=== PATIENT | female | born 1930 | race Caucasian/White ===

== ENCOUNTER → 2016-06-08 | Outpatient (CLI) | payer OTHER ==
[2016-06-08 13:28] LABS: Basophils # (auto) 0 uL; Basophils % (auto) 0.4 % (0.0-2.0); DEFINITIVE VIEW TRANSMISSION; Eosinophils # (auto) 0.1 uL; Eosinophils % (auto) 1.5 % (0.0-7.0); Hematocrit 29.8 % (36.0-46.0); Hemoglobin 9.2 g/dL (12.2-16.2); Lymphocytes # (auto) 1.9 uL; Lymphocytes % (auto) 28.3 % (10.0-50.0); Mean Corpuscular Hemoglobin 26.9 pg (28.0-32.0); Mean Corpuscular Hgb Conc. 30.9 g/dL (32.0-36.0); Mean Platelet Volume 8.5 fL (7.4-10.4); Monocytes # (auto) 0.6 uL; Monocytes % (auto) 9.2 % (0.0-12.0); Neutrophils % (auto) 60.6 % (37.0-80.0); Platelet Count (auto) 271 10^3/uL (140-450); Red Cell Distribution Width 14.7 % (11.6-16.0); White Blood Cell 6.6 10^3/uL (4.4-10.8)
[2016-06-08 13:54] LABS: Albumin 3.5 g/dL (3.4-5.0); BUN/Creatinine Ratio 17.4; Phosphorus 2.7 mg/dL (2.5-4.90); Potassium 3.6 mmol/L (3.5-5.1)
== END | disposition home or self-care (01) ==
LOC: LAB 12:42
PROVIDERS: ATTEND Internal Medicine
DX: N18.3 Chronic kidney disease, stage 3 (moderate) (principal)
CPT/HCPCS: 36415; 80069; 85025

== ENCOUNTER → 2016-07-29 | Outpatient (CLI) | payer OTHER ==
[~2016-07-29] MED LIST: ALEN70TA55 PO; ASPI-378 PO; MET25T PO; PANT40T PO
[2016-07-29 10:33] LABS: Basophils # (auto) 0 uL; Basophils % (auto) 0.5 % (0.0-2.0); Eosinophils # (auto) 0.1 uL; Hematocrit 35.9 % (36.0-46.0); Hemoglobin 11.5 g/dL (12.2-16.2); Lymphocytes # (auto) 1.7 uL; Lymphocytes % (auto) 23.8 % (10.0-50.0); Mean Corpuscular Hemoglobin 27.4 pg (28.0-32.0); Mean Corpuscular Volume 85.6 fL (80.0-100.0); Mean Platelet Volume 8.9 fL (7.4-10.4); Monocytes # (auto) 0.6 uL; Monocytes % (auto) 8.1 % (0.0-12.0); Neutrophils # (auto) 4.8 uL; Neutrophils % (auto) 66.6 % (37.0-80.0); Platelet Count (auto) 278 10^3/uL (140-450); Red Cell Distribution Width 15.9 % (11.6-16.0); White Blood Cell 7.3 10^3/uL (4.4-10.8)
== END | disposition home or self-care (01) ==
LOC: LAB 09:43
PROVIDERS: ATTEND Internal Medicine
DX: R53.83 Other fatigue (principal)
CPT/HCPCS: 36415; 85025

== ENCOUNTER → 2016-10-29 | Outpatient (CLI) | payer OTHER ==
[~2016-10-29] VITALS: Ht 162.6 cm; Wt 47.6 kg
[~2016-10-29] MED LIST changes: +ADENOSINE 40 MG in GIVE UN-DILUTED 0 ML IV ONE
== END | disposition home or self-care (01) ==
LOC: XY 07:58
PROVIDERS: ATTEND Internal Medicine Cardiovascular Disease
DX: I25.5 Ischemic cardiomyopathy (principal)
CPT/HCPCS: 78452; 93017; A9500; J0153

== ENCOUNTER → 2016-12-14 | Outpatient (CLI) | payer OTHER ==
[~2016-12-14] MED LIST changes: -ADENOSINE 40 MG in GIVE UN-DILUTED 0 ML IV ONE
[2016-12-14 12:27] LABS: Basophils # (auto) 0.1 uL; Basophils % (auto) 0.7 % (0.0-2.0); CONDITION Y; Eosinophils # (auto) 0.1 uL; Eosinophils % (auto) 1.5 % (0.0-7.0); Hematocrit 43.6 % (36.0-46.0); Hemoglobin 14.2 g/dL (12.2-16.2); Lymphocytes # (auto) 2.1 uL; Lymphocytes % (auto) 20.8 % (10.0-50.0); Mean Corpuscular Hemoglobin 28.8 pg (28.0-32.0); Mean Corpuscular Hgb Conc. 32.5 g/dL (32.0-36.0); Mean Corpuscular Volume 88.4 fL (80.0-100.0); Mean Platelet Volume 9.2 fL (7.4-10.4); Monocytes # (auto) 0.6 uL; Monocytes % (auto) 6.2 % (0.0-12.0); Neutrophils # (auto) 7.1 uL; Neutrophils % (auto) 70.8 % (37.0-80.0); Platelet Count (auto) 266 10^3/uL (140-450); Red Cell Distribution Width 14.7 % (11.6-16.0)
[2016-12-14 12:42] LABS: Urine Bilirubin Negative (Negative); Urine Blood Negative /uL (Negative); Urine Color Yellow (Yellow); Urine Glucose Normal (Normal); Urine Ketone Negative (Negative); Urine Mucus FEW (None Seen); Urine Nitrite Negative (Negative); Urine RBC 6 /hpf (0 - 4); Urine Squamous Epithelial Cell MANY /hpf (<5); Urine Urobilinogen Normal (Negative); Urine pH 6.5 (5.0-8.0)
[2016-12-14 17:54] LABS: Potassium 3.6 mmol/L (3.5-5.1)
[2016-12-14 18:10] LABS: Albumin 4.3 g/dL (3.4-5.0); BUN/Creatinine Ratio 18.4; Bilirubin, Total 0.4 mg/dL (0.2-1.0); Calcium 9.8 mg/dL (8.5-10.1); Total Protein 7.2 g/dL (6.4-8.2)
== END | disposition home or self-care (01) ==
LOC: LAB 11:25
PROVIDERS: ATTEND Internal Medicine
DX: I10 Essential (primary) hypertension (principal); E78.2 Mixed hyperlipidemia; N39.0 Urinary tract infection, site not specified
CPT/HCPCS: 36415; 80053; 80061; 81001; 84443; 85025

== ENCOUNTER → 2017-02-23 | Outpatient (CLI) | payer OTHER | END | disposition home or self-care (01) | LOC: LAB 11:09 | PROVIDERS: ATTEND Internal Medicine | DX: E03.9 Hypothyroidism, unspecified (principal) | CPT/HCPCS: 36415; 84439; 84443; 84481 ==

== ENCOUNTER → 2017-04-15 | Outpatient (CLI) | payer OTHER ==
[2017-04-15 12:18] LABS: Basophils # (auto) 0.1 uL; Basophils % (auto) 0.6 % (0.0-2.0); Eosinophils # (auto) 0.1 uL; Eosinophils % (auto) 0.8 % (0.0-7.0); Hematocrit 37.2 % (36.0-46.0); Hemoglobin 12.2 g/dL (12.2-16.2); Lymphocytes # (auto) 1.8 uL; Lymphocytes % (auto) 16.3 % (10.0-50.0); Mean Corpuscular Hemoglobin 30.4 pg (28.0-32.0); Mean Corpuscular Hgb Conc. 32.9 g/dL (32.0-36.0); Mean Corpuscular Volume 92.5 fL (80.0-100.0); Mean Platelet Volume 8.7 fL (6.9-10.8); Monocytes # (auto) 0.8 uL; Monocytes % (auto) 7.5 % (0.0-12.0); Neutrophils # (auto) 8.2 uL; Neutrophils % (auto) 74.8 % (37.0-80.0); Platelet Count (auto) 292 10^3/uL (140-450); Red Cell Distribution Width 13.4 % (11.8-14.3); White Blood Cell 10.9 10^3/uL (4.4-10.8)
[2017-04-15 12:41] LABS: INR 1.06 (0.9-1.15); Partial Thromboplastin Time 31.7 sec (22.64-33.71); Prothrombin Time 11.6 sec (9.37-12.3)
[2017-04-15 12:49] LABS: Albumin 3.7 g/dL (3.4-5.0); BUN/Creatinine Ratio 16.3; Bilirubin, Total 0.5 mg/dL (0.2-1.0); Calcium 9.1 mg/dL (8.5-10.1); Potassium 4.3 mmol/L (3.5-5.1); Total Protein 7.2 g/dL (6.4-8.2)
== END | disposition home or self-care (01) ==
LOC: LAB 11:36
PROVIDERS: ATTEND Physician Assistant
DX: Z01.818 Encounter for other preprocedural examination (principal)
CPT/HCPCS: 36415; 80053; 85025; 85610; 85730

== ENCOUNTER → 2017-05-17 | Outpatient (CLI) | payer OTHER ==
[2017-05-17 14:36] LABS: Albumin 3.8 g/dL (3.4-5.0); BUN/Creatinine Ratio 15.6; Bilirubin, Total 0.4 mg/dL (0.2-1.0); CRP High Sensitivity 1.42 mg/dL (< 0.3); Calcium 9.4 mg/dL (8.5-10.1); Potassium 4.8 mmol/L (3.5-5.1); Total Protein 7.6 g/dL (6.4-8.2)
[2017-05-17 14:52] LABS: Urine Blood Negative /uL (Negative)
[2017-05-17 14:54] LABS: Urine WBC 60 /hpf (0 - 5)
[2017-05-17 14:55] LABS: Urine Bacteria MOD /hpf (None Seen)
== END | disposition home or self-care (01) ==
LOC: LAB 13:39
PROVIDERS: ATTEND Internal Medicine
DX: R94.4 Abnormal results of kidney function studies (principal); I12.9 Hypertensive chronic kidney disease with stage 1 through stage 4 chronic kidney disease, or unspecified chronic kidney disease; I42.0 Dilated cardiomyopathy; N18.9 Chronic kidney disease, unspecified
CPT/HCPCS: 36415; 80053; 80061; 81001; 83036; 84443; 86141

== ENCOUNTER → 2017-06-01 | Outpatient (CLI) | payer OTHER ==
[~2017-06-01] VITALS: Ht 162.6 cm; Wt 45.4 kg
[~2017-06-01] MED LIST changes: +ADENOSINE 38 MG in GIVE UN-DILUTED 0 ML IV ONE
[2017-06-01 11:16] VITALS: BP 131/63
== END | disposition home or self-care (01) ==
LOC: XY 07:37
PROVIDERS: ATTEND Internal Medicine
DX: I34.0 Nonrheumatic mitral (valve) insufficiency (principal); I70.0 Atherosclerosis of aorta
CPT/HCPCS: 93017; 93306; J0153

== ENCOUNTER 2017-11-20 08:15 | Inpatient (IN) | payer OTHER ==
[~2017-11-20] VITALS: Ht 153.9 cm; Wt 43.8 kg
[~2017-11-20 08:15] MED LIST changes: -ADENOSINE 38 MG in GIVE UN-DILUTED 0 ML IV ONE; +AMLO5TAB2 PO; +APIX2.5T OR; -ASPI-378 PO; +ATOR40TA52 PO; +LOSA50TA6 PO; -MET25T PO; +METO25TA5 PO
[2017-11-20 09:41] LABS: Basophils # (auto) 0.1 uL; Eosinophils # (auto) 0.2 uL; Lymphocytes # (auto) 0.6 uL; Mean Corpuscular Hgb Conc. 31.6 g/dL (32.0-36.0); Monocytes # (auto) 0.6 uL
[2017-11-20 09:43] LABS: Basophils % (auto) 0.5 % (0.0-2.0); Eosinophils % (auto) 1.4 % (0.0-7.0); Hematocrit 22.5 % (36.0-46.0); Hemoglobin 7.1 g/dL (12.2-16.2); Lymphocytes % (auto) 3.5 % (10.0-50.0); Mean Corpuscular Hemoglobin 28.3 pg (28.0-32.0); Mean Corpuscular Volume 89.5 fL (80.0-100.0); Monocytes % (auto) 3.6 % (0.0-12.0); Neutrophils # (auto) 15.2 uL; Platelet Count (auto) 345 10^3/uL (140-450); Red Blood Cells 2.52 10^6/uL (4.0-5.20); Red Cell Distribution Width 16.1 % (11.8-14.3); White Blood Cell 16.7 10^3/uL (4.4-10.8)
[2017-11-20 09:53] LABS: Alanine Aminotransferase 23 U/L (13-56); Albumin 2.4 g/dL (3.4-5.0); Anion Gap 8 (5-15); Aspartate Aminotransferase 25 U/L (15-37); BUN/Creatinine Ratio 13.8; Blood Urea Nitrogen 15 mg/dL (7-18); Calcium 7.7 mg/dL (8.5-10.1); Carbon Dioxide 25 mmol/L (21-32); Chloride 113 mmol/L (98-107); GFR African American 61 mL/min; GFR Non-African American 51 mL/min; Glucose 130 mg/dL (74-106); Potassium 3.6 mmol/L (3.5-5.1); Sodium 146 mmol/L (136-145)
[2017-11-20 09:57] LABS: Alkaline Phosphatase 54 U/L (45-117); Bilirubin, Total 0.3 mg/dL (0.2-1.0); Total Protein 4.8 g/dL (6.4-8.2)
[2017-11-20] MEDS ORDERED: MORPHINE SULF INJ 2 MG/ML SYRINGE 1ML IV ONE ×2 (16:30→18:30)
[2017-11-20] MEDS ORDERED: ONDANSETRON HCL 4 MG/2 ML VIAL IV ONE (16:30)
[2017-11-20] MEDS ORDERED: PROMETHAZINE HCL 25 MG/ML 1ML IV ONE (18:30)
[2017-11-20] MEDS ORDERED: ACETAMINOPHEN 325 MG TAB PO PRN (19:45)
[2017-11-20] MEDS ORDERED: NITROGLYCERIN 0.4 MG SL TAB SL PRN (19:45)
[2017-11-20] MEDS ORDERED: TEMAZEPAM 15 MG CAP PO PRN (19:45)
[2017-11-20] MEDS ORDERED: ALENDRONATE SODIUM 10 MG TAB PO SCH (19:45)
[2017-11-20] MEDS ORDERED: MORPHINE SULF INJ 2 MG/ML SYRINGE 1ML IV PRN (19:45)
[2017-11-20] MEDS ORDERED: DEXTROSE (50%) 50ML SYRG IV PRN (19:45)
[2017-11-20] MEDS ORDERED: cefTRIAXone 1GM/10ml IVPUSH 10 ML IV ONE (19:45)
[2017-11-20 21:13] LABS: Urine Amorphous Crystal FEW /hpf (None Seen); Urine Bacteria NONE SEEN /hpf (None Seen); Urine Blood Negative /uL (Negative); Urine Hyaline Cast FEW /lpf (0 - 2); Urine Mucus FEW (None Seen); Urine Specific Gravity 1.023 (1.001-1.035); Urine WBC 1 /hpf (0 - 5)
[2017-11-20] MEDS: ONDANSETRON HCL 4 MG/2 ML VIAL IV PRN (21:34)
[2017-11-20] MEDS: MORPHINE SULF INJ 2 MG/ML SYRINGE 1ML IV PRN (21:34)
[2017-11-20 21:40] VITALS: BP 108/79
[2017-11-20 22:00] VITALS: BP 108/79
[2017-11-20] MEDS: InsuLIN REG 1unit/0.01ml Soln (100units/ml) SC SCH (22:00)
[2017-11-20] MEDS ORDERED: FAMOTIDINE 20 MG TAB PO SCH (22:00)
[2017-11-20] MEDS: Glucerna Carbsteady SHAKE Vanilla 8oz PO SCH (22:00)
[2017-11-20] MEDS: SODIUM CHLOR 0.9% PF (SALINE LOCK) 10ML VIAL/SYR IV SCH (22:24)
[2017-11-20] MEDS: METOPROLOL TARTRATE 25 MG TAB PO SCH (22:25)
[2017-11-20] MEDS: ATORVASTATIN 20 MG TAB PO SCH (22:25)
[2017-11-20] MEDS: ACCU-CHEK COMFORT CURVE STRIP VI SCH (22:26)
[2017-11-20] MEDS: ASCORBIC ACID 500 MG TAB PO SCH (22:26)
[2017-11-20] MEDS: PANTOPRAZOLE 40 MG TAB PO SCH (22:26)
[2017-11-21] VITALS (11 sets, daily range): BP systolic 83–111; BP diastolic 41–68
[2017-11-21] MEDS: HYDROcodone-ACET 5/325MG TAB PO PRN ×4 (00:58→18:40)
[2017-11-21] MEDS: SODIUM CHLOR 0.9% PF (SALINE LOCK) 10ML VIAL/SYR IV SCH ×3 (06:29→22:07)
[2017-11-21] MEDS: ACCU-CHEK COMFORT CURVE STRIP VI SCH ×2 (06:39→11:36)
[2017-11-21] MEDS: InsuLIN REG 1unit/0.01ml Soln (100units/ml) SC SCH ×2 (06:39→11:30)
[2017-11-21] MEDS ORDERED: ASPI81TA27 PO (06:45)
[2017-11-21] MEDS ORDERED: HYDR-4683 PO (06:45)
[2017-11-21 07:39] LABS: Basophils # (auto) 0.1 uL; Eosinophils # (auto) 0.2 uL; Mean Corpuscular Volume 90.2 fL (80.0-100.0)
[2017-11-21 07:42] LABS: Basophils % (auto) 1.2 % (0.0-2.0); Eosinophils % (auto) 2.9 % (0.0-7.0); Hematocrit 19.7 % (36.0-46.0); Lymphocytes % (auto) 12.9 % (10.0-50.0); Mean Corpuscular Hemoglobin 29.4 pg (28.0-32.0); Mean Corpuscular Hgb Conc. 32.5 g/dL (32.0-36.0); Monocytes # (auto) 0.6 uL; Monocytes % (auto) 7.6 % (0.0-12.0); Neutrophils # (auto) 6.2 uL; Neutrophils % (auto) 75.4 % (37.0-80.0); Platelet Count (auto) 276 10^3/uL (140-450); Red Blood Cells 2.18 10^6/uL (4.0-5.20); Red Cell Distribution Width 15.9 % (11.8-14.3); White Blood Cell 8.2 10^3/uL (4.4-10.8)
[2017-11-21 07:50] LABS: Albumin 2.3 g/dL (3.4-5.0); BUN/Creatinine Ratio 17.4; Calcium 8.1 mg/dL (8.5-10.1); Potassium 4.3 mmol/L (3.5-5.1)
[2017-11-21 07:53] LABS: Bilirubin, Total 0.4 mg/dL (0.2-1.0); Total Protein 4.7 g/dL (6.4-8.2)
[2017-11-21 07:56] LABS: Hemoglobin 6.4 g/dL (12.2-16.2)
[2017-11-21 08:13] LABS: INR 1.07 (0.9-1.15); Prothrombin Time 11.4 sec (9.27-12.13)
[2017-11-21] MEDS: Glucerna Carbsteady SHAKE Vanilla 8oz PO SCH ×2 (09:24→12:00)
[2017-11-21] MEDS: METOPROLOL TARTRATE 25 MG TAB PO SCH (10:00)
[2017-11-21] MEDS ORDERED: LOSARTAN POTASSIUM 50 MG TAB PO SCH (10:00)
[2017-11-21] MEDS ORDERED: amLODIPine BESYLATE 5 MG TAB PO SCH (10:00)
[2017-11-21] MEDS: MULTIPLE VITAMIN TAB PO SCH (11:35)
[2017-11-21] MEDS: PANTOPRAZOLE 40 MG TAB PO SCH ×2 (11:35→22:03)
[2017-11-21] MEDS: ASCORBIC ACID 500 MG TAB PO SCH ×2 (11:35→22:03)
[2017-11-21] MEDS: ZINC SULFATE 220mg CAP or TAB PO SCH (11:35)
[2017-11-21] MEDS ORDERED: LEVOTHYROXINE SODIUM 100 MCG/5 ML INJ IV ONE (14:30)
[2017-11-21] MEDS: ALBUMIN 25% 50 ML IV SCH ×2 (15:37→22:04)
[2017-11-21] MEDS: CALCIUM W/VIT D (600MG/400IU) TAB PO SCH (18:29)
[2017-11-21] MEDS: Ensure Enlive Chocolate 8oz Bottle PO SCH (18:29)
[2017-11-21] MEDS: DOCUSATE SOD 100 MG CAP PO PRN (18:40)
[2017-11-21] MEDS ORDERED: cefTRIAXone 1GM/10ml IVPUSH 10 ML IV SCH (22:00)
[2017-11-21] MEDS: ATORVASTATIN 20 MG TAB PO SCH (22:03)
[2017-11-22] MEDS: HYDROcodone-ACET 5/325MG TAB PO PRN ×4 (00:54→23:20)
[2017-11-22 05:00] VITALS: BP 105/48
[2017-11-22] MEDS: ALBUMIN 25% 50 ML IV SCH (06:00)
[2017-11-22] MEDS: SODIUM CHLOR 0.9% PF (SALINE LOCK) 10ML VIAL/SYR IV SCH ×3 (06:00→23:03)
[2017-11-22] MEDS: PANTOPRAZOLE 40 MG TAB PO SCH ×2 (08:54→23:02)
[2017-11-22] MEDS: CALCIUM W/VIT D (600MG/400IU) TAB PO SCH ×2 (08:54→19:03)
[2017-11-22] MEDS: ZINC SULFATE 220mg CAP or TAB PO SCH (08:54)
[2017-11-22] MEDS: MULTIPLE VITAMIN TAB PO SCH (08:54)
[2017-11-22] MEDS: LEVOTHYROXINE SODIUM 100 MCG/5 ML INJ IV SCH (08:54)
[2017-11-22] MEDS: DOCUSATE SOD 100 MG CAP PO PRN (08:55)
[2017-11-22] MEDS: Ensure Enlive Chocolate 8oz Bottle PO SCH ×3 (08:55→19:03)
[2017-11-22] MEDS: ASCORBIC ACID 500 MG TAB PO SCH ×2 (08:55→23:02)
[2017-11-22 09:00] VITALS: BP 105/51
[2017-11-22 09:32] LABS: Free T4 (Free Thyroxine) 0.87 ng/dL (0.89-1.76)
[2017-11-22 09:36] LABS: Free T3 1.38 pg/mL (2.3-4.2)
[2017-11-22 12:25] LABS: Basophils # (auto) 0.1 uL; Eosinophils # (auto) 0.3 uL; Hemoglobin 8.2 g/dL (12.2-16.2); Monocytes # (auto) 0.8 uL; Neutrophils # (auto) 6.8 uL; Nucleated Red Blood Cells % 0.2 %; Red Blood Cells 2.77 10^6/uL (4.0-5.20); Red Cell Distribution Width 16.1 % (11.8-14.3); White Blood Cell 9.1 10^3/uL (4.4-10.8)
[2017-11-22 12:27] LABS: Basophils % (auto) 0.9 % (0.0-2.0); Eosinophils % (auto) 3.7 % (0.0-7.0); Hematocrit 24.8 % (36.0-46.0); Lymphocytes # (auto) 1.1 uL; Lymphocytes % (auto) 12.5 % (10.0-50.0); Mean Corpuscular Hemoglobin 29.6 pg (28.0-32.0); Mean Corpuscular Hgb Conc. 33.1 g/dL (32.0-36.0); Mean Corpuscular Volume 89.4 fL (80.0-100.0); Monocytes % (auto) 8.9 % (0.0-12.0); Platelet Count (auto) 245 10^3/uL (140-450)
[2017-11-22 13:00] VITALS: BP 91/53
[2017-11-22] MEDS ORDERED: ALEN70TA55 PO (14:46)
[2017-11-22] MEDS ORDERED: ATOR40TA52 PO (14:46)
[2017-11-22 16:58] VITALS: BP 90/48
[2017-11-22] MEDS: MORPHINE SULF INJ 2 MG/ML SYRINGE 1ML IV PRN (19:03)
[2017-11-22] MEDS: ONDANSETRON HCL 4 MG/2 ML VIAL IV PRN (19:03)
[2017-11-22 22:00] VITALS: BP 92/42
[2017-11-22] MEDS: ATORVASTATIN 20 MG TAB PO SCH (23:01)
[2017-11-23 05:00] VITALS: BP 101/50
[2017-11-23 05:54] LABS: Basophils % (auto) 0.7 % (0.0-2.0); Eosinophils # (auto) 0.5 uL; Hemoglobin 7.6 g/dL (12.2-16.2); Monocytes # (auto) 0.5 uL; White Blood Cell 7.1 10^3/uL (4.4-10.8)
[2017-11-23 05:56] LABS: Basophils # (auto) 0.1 uL; Hematocrit 22.8 % (36.0-46.0); Lymphocytes # (auto) 1.1 uL; Mean Corpuscular Hemoglobin 30.2 pg (28.0-32.0); Mean Corpuscular Hgb Conc. 33.3 g/dL (32.0-36.0); Mean Corpuscular Volume 90.6 fL (80.0-100.0); Monocytes % (auto) 7.5 % (0.0-12.0); Neutrophils % (auto) 69.8 % (37.0-80.0); Platelet Count (auto) 205 10^3/uL (140-450); Red Blood Cells 2.52 10^6/uL (4.0-5.20); Red Cell Distribution Width 16.3 % (11.8-14.3)
[2017-11-23] MEDS: SODIUM CHLOR 0.9% PF (SALINE LOCK) 10ML VIAL/SYR IV SCH ×3 (05:57→21:16)
[2017-11-23] MEDS: HYDROcodone-ACET 5/325MG TAB PO PRN ×4 (05:58→18:45)
[2017-11-23] MEDS: Ensure Enlive Chocolate 8oz Bottle PO SCH ×3 (08:00→18:55)
[2017-11-23 09:00] VITALS: BP 99/50
[2017-11-23] MEDS: CALCIUM W/VIT D (600MG/400IU) TAB PO SCH ×2 (09:41→18:00)
[2017-11-23] MEDS: LEVOTHYROXINE SODIUM 100 MCG/5 ML INJ IV SCH (09:41)
[2017-11-23] MEDS: MULTIPLE VITAMIN TAB PO SCH (09:41)
[2017-11-23] MEDS: ASCORBIC ACID 500 MG TAB PO SCH ×2 (09:41→21:16)
[2017-11-23] MEDS: ZINC SULFATE 220mg CAP or TAB PO SCH (09:41)
[2017-11-23] MEDS: PANTOPRAZOLE 40 MG TAB PO SCH (10:00)
[2017-11-23 13:00] VITALS: BP 95/52
[2017-11-23] MEDS: SODIUM FERR GLUC 62.5MG/5ML 125 MG in SODIUM CHL 0.9% 100 ML IV SCH (16:20)
[2017-11-23 17:00] VITALS: BP 106/57
[2017-11-23] MEDS: ATORVASTATIN 20 MG TAB PO SCH (21:16)
[2017-11-23 22:00] VITALS: BP 106/61
[2017-11-24] MEDS: HYDROcodone-ACET 5/325MG TAB PO PRN ×3 (00:24→22:33)
[2017-11-24 06:03] VITALS: BP 132/68
[2017-11-24 06:44] LABS: Hematocrit 23.2 % (36.0-46.0); Hemoglobin 7.9 g/dL (12.2-16.2)
[2017-11-24] MEDS: SODIUM CHLOR 0.9% PF (SALINE LOCK) 10ML VIAL/SYR IV SCH ×3 (06:54→22:17)
[2017-11-24] MEDS: Ensure Enlive Chocolate 8oz Bottle PO SCH ×3 (08:00→18:00)
[2017-11-24 09:00] VITALS: BP 104/58
[2017-11-24] MEDS: ASCORBIC ACID 500 MG TAB PO SCH ×2 (10:28→22:17)
[2017-11-24] MEDS: MULTIPLE VITAMIN TAB PO SCH (10:29)
[2017-11-24] MEDS: ZINC SULFATE 220mg CAP or TAB PO SCH (10:29)
[2017-11-24] MEDS: PANTOPRAZOLE 40 MG TAB PO SCH (10:29)
[2017-11-24] MEDS: CALCIUM W/VIT D (600MG/400IU) TAB PO SCH ×2 (10:29→18:16)
[2017-11-24] MEDS: LEVOTHYROXINE SODIUM 100 MCG/5 ML INJ IV SCH (10:30)
[2017-11-24] MEDS: SODIUM FERR GLUC 62.5MG/5ML 125 MG in SODIUM CHL 0.9% 100 ML IV SCH ×2 (12:00→15:18)
[2017-11-24 13:00] VITALS: BP 118/63
[2017-11-24] MEDS: MORPHINE SULF INJ 2 MG/ML SYRINGE 1ML IV PRN (15:51)
[2017-11-24 17:24] VITALS: BP 91/51
[2017-11-24] MEDS: Pro-Stat SF 30ml Vanilla PO SCH (18:00)
[2017-11-24 20:00] VITALS: BP 152/93
[2017-11-24] MEDS: ATORVASTATIN 20 MG TAB PO SCH (22:17)
[2017-11-24 22:18] VITALS: BP 115/66
[2017-11-25 04:54] VITALS: BP 106/50
[2017-11-25] MEDS: HYDROcodone-ACET 5/325MG TAB PO PRN ×3 (05:52→21:21)
[2017-11-25] MEDS: SODIUM CHLOR 0.9% PF (SALINE LOCK) 10ML VIAL/SYR IV SCH ×3 (06:14→21:21)
[2017-11-25] MEDS: Ensure Enlive Chocolate 8oz Bottle PO SCH ×3 (08:00→18:51)
[2017-11-25] MEDS: ONDANSETRON HCL 4 MG/2 ML VIAL IV PRN (08:13)
[2017-11-25] MEDS: Pro-Stat SF 30ml Vanilla PO SCH ×2 (08:13→18:52)
[2017-11-25] MEDS: CALCIUM W/VIT D (600MG/400IU) TAB PO SCH ×2 (08:13→18:52)
[2017-11-25 09:00] VITALS: BP 113/56
[2017-11-25] MEDS: ASCORBIC ACID 500 MG TAB PO SCH ×2 (09:52→21:20)
[2017-11-25] MEDS: ZINC SULFATE 220mg CAP or TAB PO SCH (09:52)
[2017-11-25] MEDS: LEVOTHYROXINE SODIUM 100 MCG/5 ML INJ IV SCH (09:52)
[2017-11-25] MEDS: PANTOPRAZOLE 40 MG TAB PO SCH (09:52)
[2017-11-25] MEDS: MULTIPLE VITAMIN TAB PO SCH (09:52)
[2017-11-25 10:21] LABS: Hematocrit 26.9 % (36.0-46.0); Hemoglobin 8.8 g/dL (12.2-16.2)
[2017-11-25 10:38] LABS: Urine Bacteria FEW /hpf (None Seen); Urine Blood Negative /uL (Negative); Urine Budding Yeast MODERATE /hpf (None Seen); Urine Specific Gravity 1.012 (1.001-1.035); Urine WBC 40 /hpf (0 - 5)
[2017-11-25 13:00] VITALS: BP 116/60
[2017-11-25] MEDS: SODIUM FERR GLUC 62.5MG/5ML 125 MG in SODIUM CHL 0.9% 100 ML IV SCH (13:49)
[2017-11-25] MEDS ORDERED: LEV50T PO (16:25)
[2017-11-25 17:00] VITALS: BP 120/60
[2017-11-25] MEDS: ATORVASTATIN 20 MG TAB PO SCH (21:20)
[2017-11-25 22:01] VITALS: BP 115/63
[2017-11-26] MEDS: HYDROcodone-ACET 5/325MG TAB PO PRN ×2 (01:21→11:10)
[2017-11-26 04:48] VITALS: BP 96/53
[2017-11-26] MEDS: SODIUM CHLOR 0.9% PF (SALINE LOCK) 10ML VIAL/SYR IV SCH ×2 (05:56→14:00)
[2017-11-26 08:00] VITALS: BP 102/56
[2017-11-26] MEDS ORDERED: LEVOFLOXACIN 500 MG TAB PO SCH (10:00)
[2017-11-26] MEDS: ZINC SULFATE 220mg CAP or TAB PO SCH (11:09)
[2017-11-26] MEDS: Pro-Stat SF 30ml Vanilla PO SCH ×2 (11:09→18:00)
[2017-11-26] MEDS: LEVOTHYROXINE SODIUM 100 MCG/5 ML INJ IV SCH (11:09)
[2017-11-26] MEDS: Ensure Enlive Chocolate 8oz Bottle PO SCH ×3 (11:09→18:00)
[2017-11-26] MEDS: CALCIUM W/VIT D (600MG/400IU) TAB PO SCH ×2 (11:09→18:00)
[2017-11-26] MEDS: ASCORBIC ACID 500 MG TAB PO SCH (11:10)
[2017-11-26] MEDS: MULTIPLE VITAMIN TAB PO SCH (11:10)
[2017-11-26] MEDS: PANTOPRAZOLE 40 MG TAB PO SCH (11:10)
[2017-11-26 12:00] VITALS: BP 119/60
[2017-11-26] MEDS: SODIUM FERR GLUC 62.5MG/5ML 125 MG in SODIUM CHL 0.9% 100 ML IV SCH (12:00)
[2017-11-26 13:26] VITALS: BP 87/45
[2017-11-26 16:00] VITALS: BP 127/65
== END 2017-11-26 18:50 | disposition hospice, home (50) | DRG 542 ==
LOC: ER 08:15 → EDBD 08:15 → TELE 08:16 → TELE-CENTR 21:38 → CENTRAL 11-22 16:07
PROVIDERS: ADMIT Internal Medicine; ATTEND Internal Medicine
PROC: 30233N1 Transfusion of Nonautologous Red Blood Cells into Peripheral Vein, Percutaneous Approach (ICD-10-PCS; principal; 2017-11-21)
DX: M80.051A Age-related osteoporosis with current pathological fracture, right femur, initial encounter for fracture (principal); E43 Unspecified severe protein-calorie malnutrition; I48.92 Unspecified atrial flutter; E87.0 Hyperosmolality and hypernatremia; C56.1 Malignant neoplasm of right ovary; N39.0 Urinary tract infection, site not specified; Z68.1 Body mass index [BMI] 19.9 or less, adult; K44.9 Diaphragmatic hernia without obstruction or gangrene; M54.5 Low back pain; I48.91 Unspecified atrial fibrillation; E03.9 Hypothyroidism, unspecified; E61.1 Iron deficiency; Z66 Do not resuscitate; I12.9 Hypertensive chronic kidney disease with stage 1 through stage 4 chronic kidney disease, or unspecified chronic kidney disease; N18.3 Chronic kidney disease, stage 3 (moderate); D63.1 Anemia in chronic kidney disease; Y92.009 Unspecified place in unspecified non-institutional (private) residence as the place of occurrence of the external cause; W18.30XA Fall on same level, unspecified, initial encounter; Y93.89 Activity, other specified; Y99.8 Other external cause status; Z85.43 Personal history of malignant neoplasm of ovary; Z90.710 Acquired absence of both cervix and uterus; Z90.721 Acquired absence of ovaries, unilateral; Z90.49 Acquired absence of other specified parts of digestive tract
CPT/HCPCS: 36415; 74176; 80053; 81001; 82378; 82962; 83036; 83735; 84439; 84443; 84481; 84484; 85014; 85018; 85025; 85610; 86301; 86304; 86850; 86900; 86901; 86920; 87081; 87086; 87088; 87186; 93005; 96374; 96375; 96376; 97110; 97116; 97163; 97530; J0696; J2405; J3490